=== PATIENT | female | born 1990 | race Caucasian/White ===

== ENCOUNTER → 2019-05-08 | Outpatient (CLI) | payer MEDICAID, SELFPAY ==
[2019-05-08 09:31] VITALS: BMI 39.6
[2019-05-13 08:40] LABS: HPV APTIMA, High Risk Negative (Negative)
== END | disposition home or self-care (01) ==
LOC: LABSPEC 15:14
PROVIDERS: Family Provider Family Medicine; PCP Family Medicine; Referring Provider Nurse Practitioner Women's Health; Visit Provider Nurse Practitioner Women's Health
DX: Z12.4 Encounter for screening for malignant neoplasm of cervix (principal)
CPT/HCPCS: 87624; 88175; G0145

== ENCOUNTER 2019-11-30 19:55 | Emergency (ER) | payer MEDICAID, SELFPAY ==
[2019-05-08 09:31] VITALS: BMI 39.6
[2019-11-30 19:56] VITALS: BP 161/91; PULSE 84; RESP 16; TEMP 36.7; O2SAT 95; BMI 38.0
[2019-11-30] MEDS: Ibuprofen 600 MG Tablet PO (20:39)
[2019-11-30 20:42] LABS: Bacteria 0 SEEN /hpf (None Seen); Mucous, Urine 0 SEEN /hpf (<or=2+); Squamous Epithelial Cells - UA 0 SEEN /hpf (5-10); White Blood Cells 0 SEEN /hpf (0-5)
[2019-11-30 20:48] LABS: Color, Urine Yellow (Yellow); Glucose, Dipstick Normal (Normal); Ketone-Dipstick Negative (Negative); Leukocyte Esterase-Dipstick Negative /ul (Negative); Nitrite-Dipstick Negative (Negative); Occult Blood-Urine 250 /ul (Negative); Protein-Dipstick Negative (Negative); Urine Bilirubin Dipstick Negative (Negative); Urine Clarity Clear (Clear); Urine Urobilinogen Normal (Normal)
[2019-11-30 20:51] LABS: Internal QC Validated? YES +Cl - CLEAR BKGD; Pregnancy, Urine Negative Negative
[2019-11-30 21:07] LABS: Red Blood Cells-Urine 0-5 SEEN /hpf (0-5)
[2019-11-30 21:08] LABS: Calcium Oxalate Crystals Ur RARE /hpf (<or=2+)
--- NOTE | 2019-11-30 21:28 | ED.VISSUMM ---
- ER Visit Summary Date of Service: 11/30/19 Chief Complaint: Vaginal bleeding History of Present Illness: The patient is a 29 F who sees the [facility]. She reports that she has vaginal bleeding that began 4 days ago. She has crampy suprapubic pain that began yesterday. 7 to 10 hours apart temporarily. It was moderately relieved by nothing. States that the bleeding is casing cooker than her typical period. She is going through 2-3 panty liners a day. However, she reports her last menstrual period was November 15 and she is never had irregular periods like this. Patient also reports that she changed her control 2 to 3 months ago. Physical Examination: Vitals: Stable. Afebrile. General: Well-nourished and well-developed. Head: Normocephalic atraumatic. Neck: Supple, no lymphadenopathy. No JVD. Nontender. Cardiovascular: Regular rate and rhythm. No murmurs. Respiratory: No respiratory distress. Clear to auscultation bilaterally. Abdominal: Soft, nontender, nondistended, normal bowel sounds. No guarding, rebound, or peritoneal signs. : Normal external exam. There is mild bleeding present and clot in the vault. She has an anteverted uterus. Cervix is visualized and is normal. Back: Nontender. Extremities: Nontender, no edema. Skin: Normal color, no rash. Neurologic: Alert and oriented ?3. Cranial nerves II through XII are intact. Normal strength and sensation. Psych: Normal affect. Test Results: Urinalysis shows occult blood. test is negative. GC and Chlamydia were sent and have not returned. Patient denies any risk of STD exposure. Emergency Department Course and Treatment: Patient was treated with Tylenol p.o. She is resting comfortably. Treatment Plan: Patient be discharged instructed to follow-up the [facility] for further evaluation treatment. I did discuss that this may be due to the change in her method of control. Return to the emergency department for any worsening symptoms. Disposition: To home in improved and stable condition. Impression: 1. Dysfunctional uterine bleeding. This note was generated with [employer] software. It may contain incorrect words, spelling, and punctuation that were not noted in review of the chart prior to signing ED Disposition - Plan for ED Patient: Disposition: Home or Assisted Living Instructions: Dysfunctional Uterine Bleeding Referrals: Monica Merida MD [STAFF PHYSICIAN] - 3-5 Days
[2019-11-30 22:37] LABS: Chlamydia Trachomatis by PCR Negative (Negative); Neisserai gonorrhoeae by PCR Negative (Negative)
[2019-11-30 22:38] LABS: Probe Check PASS; Sample Adequacy Control PASS; Specimen Processing Control PASS
== END 2019-11-30 21:38 | disposition home or self-care (01) ==
LOC: ED 20:25
PROVIDERS: Emergency Provider Emergency Medicine; PCP Family Medicine
DX: N93.8 Other specified abnormal uterine and vaginal bleeding (principal); Z79.3 Long term (current) use of hormonal contraceptives
CPT/HCPCS: 81001; 81025; 87491; 87591; 99283

== ENCOUNTER 2020-03-17 06:48 | Emergency (ER) | payer MEDICAID, SELFPAY ==
[2019-12-03 13:02] VITALS: BMI 38.0
[2020-03-17 06:50] VITALS: BP 145/105; PULSE 94; RESP 16; TEMP 37.1; O2SAT 92; BMI 41.2
--- NOTE | 2020-03-17 06:54 | RAD_ITS ---
STUDY: X-RAY - LEFT FOOT CLINICAL: Female, 30 years old. PAIN ON GRT TOE SIDE W/ ROM. HX FALL TECHNIQUE: 3 view(s) of the foot. COMPARISON: None. FINDINGS: Normal talus, calcaneus, and tarsal bones. Normal visualized subtalar, talonavicular, calcaneocuboid, tarsal and tarsometatarsal articulations. Normal metatarsi. Normal metatarsophalangeal joint of the great toe. Normal tibial and fibular sesamoid bones. Normal interphalangeal joint of the great toe. Normal phalanges of the great toe. Normal second through fifth metatarsophalangeal joints. Normal interphalangeal joints and phalanges of the lesser toes. The soft tissue structures are unremarkable. RAD/Foot min 3 Views IMPRESSION: Normal x-ray examination of the foot. Electronically Signed: Toni Deluca MD at 7:38 EDT , Service support ,
--- NOTE | 2020-03-17 07:07 | ED.DCSUM_ITS ---
"- ER Visit Summary Date of Service: 03/17/20 Chief Complaint: Left foot pain History of Present Illness: The patient is a 30 F presenting with left foot pain. Patient states yesterday she was walking out of [employer]. She states it was raining and she slipped and fell. She states she landed on her left foot. She did not hit her head or lose consciousness. She tried ice and elevation at home. When she woke up this morning she had persistent pain in her left foot. Denies other injuries. Physical Examination: Vitals are stable. Patient is afebrile. Alert no acute distress. HEENT exam is unremarkable. Neck is supple. Lungs are clear and equal bilaterally. Heart is regular rate and rhythm. Extremities tenderness along first metatarsal and great toe. No ankle or Achilles tenderness. No proximal fibula tenderness. Normal pulses. Skin is warm and dry. No focal neurologic deficit. Remainder of exam is unremarkable. Emergency Department Course and Treatment: Left foot x-ray shows normal x-ray examination of the foot. Patient was given a postop shoe. She was given a prescription for Naprosyn. She is advised to continue to ice and elevate. Advised to follow-up with primary care physician. Advised return to ED for worsening complaints. Disposition: Discharge home Impression: Left foot sprain This note was generated with [employer] dictation software. It may contain incorrect words, spelling, and punctuation that were not noted in review of the chart prior to signing ED Disposition - Plan for ED Patient: Instructions: ED Sprain Foot Prescriptions: Naproxen [Naprosyn] 500 mg PO BID PRN #20 tab Prescription Printed Referrals: Frankie Skinner MD [Primary Care Provider] -"
--- NOTE | 2020-03-17 07:53 | ED.DEP ---
ED Disposition - Plan for ED Patient: Instructions: ED Sprain Foot Prescriptions: Naproxen [Naprosyn] 500 mg PO BID PRN #20 tablet Referrals: Frankie Skinner MD [Primary Care Provider] -
== END 2020-03-17 08:06 | disposition home or self-care (01) ==
LOC: ED 07:33
PROVIDERS: Emergency Provider Emergency Medicine; PCP Family Medicine
DX: S93.602A Unspecified sprain of left foot, initial encounter (principal); W01.0XXA Fall on same level from slipping, tripping and stumbling without subsequent striking against object, initial encounter; Y93.01 Activity, walking, marching and hiking; Y92.9 Unspecified place or not applicable
CPT/HCPCS: 73630; 99283

== ENCOUNTER 2020-04-24 10:00 | Emergency (ER) | payer OTHER, SELFPAY ==
[2020-04-24 10:03] VITALS: BP 137/90; PULSE 96; RESP 16; TEMP 36.3; O2SAT 98; BMI 37.8
--- NOTE | 2020-04-24 10:30 | ED.DCSUM_ITS ---
- ER Visit Summary Date of Service: 04/24/20 Chief Complaint: Back pain History of Present Illness: The patient is a [address] Orozco. She reports that she has had lower back pain intermittently for the past 4 years since having an epidural for . States that her pain began again yesterday. She denies any known trauma. No fall, MVA, or change in activity. She describes it as a sharp pain is 10 of 10 with movement 3 out of 10 at rest. She taken Aleve with no relief. States that it radiates down the back of her right leg to the mid thigh region. She denies any numbness or tingling. No problems with her bowels or bladder. No groin numbness. No red flags. Physical Examination: Vitals: Stable. Afebrile. General: A&O x 3. NAD. Cardiovascular exam: Regular rate and rhythm, no murmur, rub or gallop. Respiratory exam: Clear to auscultation bilaterally. No wheezes or stridor. Abdominal exam: Soft, nontender, nondistended, normal bowel sounds. No peritoneal signs. Back: Diffuse moderate tenderness to palpation over the lumbar spine and the paraspinous musculature in the lumbar region. No point tenderness. Positive straight leg on the right. 5/5 DF, PF, EHL bilaterally. Normal sensation to light touch throughout. Extremity: No clubbing, cyanosis, or edema. Emergency Department Course and Treatment: An [facility] report was obtained which was negative. The patient drove here and was given Tylenol. Treatment Plan: Patient will be discharged with naproxen and [place]. She is instructed on warm compresses and a TENS unit. Follow-up with her primary care physician in 3 to 5 days if not improving. Signs and symptoms of cauda equina syndrome were discussed and she is instructed return for these. Disposition: To home in improved and stable condition. Impression: 1. Acute sciatica on right. This note was generated with [employer] dictation software. It may contain incorrect words, spelling, and punctuation that were not noted in review of the chart prior to signing ED Disposition - Plan for ED Patient: Instructions: ED LUMBAR SPRAIN/STRAIN Prescriptions: Naproxen [Naprosyn] 500 mg PO BID #14 tablet Hydrocodone Bitart/Apap 5-325 [[place] 5MG-325MG] 1 tablet PO Q6H PRN PRN 3 Days #10 tablet PRN Reason: Pain Referrals: Frankie Skinner MD [Primary Care Provider] - 3-5 Days if not improving
[2020-04-24] MEDS: Acetaminophen 500 MG Tablet 1000 MG PO (10:45)
== END 2020-04-24 10:49 | disposition home or self-care (01) ==
LOC: ED 10:36
PROVIDERS: Emergency Provider Emergency Medicine; PCP Family Medicine
DX: M54.41 Lumbago with sciatica, right side (principal)
CPT/HCPCS: 99283

== ENCOUNTER → 2024-05-01 | Outpatient (CLI) | payer OTHER, SELFPAY ==
[2024-05-08 01:07] LABS: Alternaria tenuis <0.10 kU/L (Class 0); Ash, White <0.10 kU/L (Class 0); Aspergillus fumigatus <0.10 kU/L (Class 0); Beef <0.10 kU/L (Class 0); Bermuda Grass 0.67 kU/L (Class II); Birch <0.10 kU/L (Class 0); Black Walnut <0.10 kU/L (Class 0); Cedar, Mountain <0.10 kU/L (Class 0); Chocolate <0.10 kU/L (Class 0); Cladosporium herbarum <0.10 kU/L (Class 0); Cockroach, American <0.10 kU/L (Class 0); Codfish <0.10 kU/L (Class 0); Corn <0.10 kU/L (Class 0); Cottonwood <0.10 kU/L (Class 0); D farinae Mite <0.10 kU/L (Class 0); D pteronyssinus <0.10 kU/L (Class 0); Dog Epithelia 0.73 kU/L (Class II); Egg, Whole <0.10 kU/L (Class 0); Elm, American White <0.10 kU/L (Class 0); Immunoglobulin E 38 IU/mL (6-495); Maple/Box Elder <0.10 kU/L (Class 0); Milk (Cow) <0.10 kU/L (Class 0); Mouse Urine <0.10 kU/L (Class 0); Mulberry, White <0.10 kU/L (Class 0); Mussels <0.10 kU/L (Class 0); Oak, White <0.10 kU/L (Class 0); Peanut <0.10 kU/L (Class 0); Pecan <0.10 kU/L (Class 0); Penicillium Notatum <0.10 kU/L (Class 0); Pigweed, Rough <0.10 kU/L (Class 0); Pork <0.10 kU/L (Class 0); Ragweed, Short/Common 0.35 kU/L (Class I); Russian Thistle <0.10 kU/L (Class 0); Salmon <0.10 kU/L (Class 0); Sheep Sorrel <0.10 kU/L (Class 0); Shrimp <0.10 kU/L (Class 0); Soybean <0.10 kU/L (Class 0); Sycamore, American <0.10 kU/L (Class 0); Timothy Grass 1.83 kU/L (Class III); Tuna <0.10 kU/L (Class 0); Wheat <0.10 kU/L (Class 0)
== END | disposition home or self-care (01) ==
LOC: MFPLAB 16:55
PROVIDERS: PCP Family Medicine; Visit Provider Family Medicine
DX: R21 Rash and other nonspecific skin eruption (principal)
CPT/HCPCS: 36415; 82785; 86003; 86005

== ENCOUNTER → 2024-05-16 | Outpatient (CLI) | payer OTHER, SELFPAY ==
[2024-05-16 12:19] LABS: Absolute Neutrophil Count 3.7 X10^3/uL (2.0-7.7); Basophil# 0.03 X10^3/uL; Basophil% 0.5 % (0-1); Eosinophil# 0.07 X10^3/uL; Eosinophils% 1.1 % (0-5); Hemoglobin 13.2 g/dL (12.0-15.0); Lymphocyte % 30.6 % (19-41); Mean Corp Hgb Conc 31.4 g/dL (32-36); Mean Corpuscular Hgb 27.2 pg (27.0-32.0); Mean Corpuscular Volume 86.6 fL (81-99); Mean Platelet Vol. 10.5 fl (6.2-12.0); Monocyte# 0.53 X10^3/uL; Monocyte% 8.5 % (0-10); NRBC Flagged by Analyzer 0 % (0-5); Neutrophil # 3.66 X10^3/uL (2.7-7.7); Platelet Count 357 K/mm3 (150-450); RBC Distribution Width CV 12.9 % (11.6-14.6); RBC Distribution Width SD 40.5 fl (35.1-43.9); Red Blood Count 4.85 M/mm3 (4.2-5.4); White Blood Count 6.2 K/mm3 (4.4-11.0)
[2024-05-16 13:09] LABS: ALB/GLOB Ratio 0.9 RATIO (0.9-2.4); AST(SGOT) 9 U/L (15-37); Alanine Aminotransfer ALT/SGPT 16 U/L (13-56); Albumin, Serum 3.3 g/dL (3.2-5.0); Alkaline Phosphatase 108 U/L (45-117); Anion Gap 7 (5-15); BUN 14 mg/dL (7-18); BUN/Creat Ratio 20.9 RATIO (10-20); Calcium,Total 9.1 mg/dL (8.5-10.1); Chloride 107 mmol/L (98-107); Cholesterol 213 mg/dL (200); Creatinine, Serum 0.67 mg/dL (0.55-1.02); EST Glomerular Filtration Rate 106 mL/min (>60); Est Glom Filt Rate - Afr Amer 128 mL/min (>60); Globulin 3.5 g/dL (2.2-4.2); Glucose 148 mg/dL (74-106); High Density Lipoprotein 50 mg/dL; Potassium 4.1 mmol/L (3.5-5.1); Protein, Total 6.8 g/dL (6.4-8.2); Sodium Level 138 mmol/L (136-145); Triglycerides 109 mg/dL; Very Low Density Lipoprotein 22 mg/dL (5-40)
== END | disposition home or self-care (01) ==
LOC: MFPLAB 09:58
PROVIDERS: PCP Family Medicine; Visit Provider Family Medicine
DX: Z13.220 Encounter for screening for lipoid disorders (principal); R03.0 Elevated blood-pressure reading, without diagnosis of hypertension
CPT/HCPCS: 36415; 80053; 80061; 85025

== ENCOUNTER → 2024-06-04 | Outpatient (CLI) | payer OTHER, SELFPAY ==
[2024-06-09 15:07] LABS: HPV APTIMA, High Risk Negative (Negative)
[2024-06-09 22:34] LABS: HPV Reflexed? YES, CHARGE PATIENT
== END | disposition home or self-care (01) ==
PROVIDERS: PCP Family Medicine; Referring Provider Nurse Practitioner Family; Visit Provider Nurse Practitioner Family
DX: Z12.4 Encounter for screening for malignant neoplasm of cervix (principal)
CPT/HCPCS: 87624; 88175; G0145